=== PATIENT | male | born 1950 | race Caucasian/White ===

== ENCOUNTER 2020-04-22 18:26 | Inpatient (IN) | payer OTHER, MEDICARE ==
[~2020-04-22] VITALS: Ht 167.6 cm; Wt 92.5 kg
[~2020-04-22 18:26] MED LIST: OMEP20ER; OXYACE5T PO; RXOXYACE PO
[2020-04-22 18:49] LABS: EOSINOPHILS ABSOLUTE AUTO 0.68 K/mm3 (0.00-0.68); EOSINOPHILS PERCENT AUTO 2 % (0-6); Hematocrit 35.6 % (37.0-53.0); Hemoglobin 11.7 g/dL (13.5-17.5); IMMATURE GRAN ABSOLUTE AUTO 0.37 K/mm3 (0.00-0.10); IMMATURE GRAN PERCENT AUTO 1 % (0-1); LYMPHOCYTES ABSOLUTE AUTO 1.78 K/mm3 (0.84-5.20); LYMPHOCYTES PERCENT AUTO 5 % (21-46); MONOCYTES ABSOLUTE AUTO 2.05 K/mm3 (0.16-1.47); MONOCYTES PERCENT AUTO 6 % (4-13); Mean Corpuscular HGB 29.8 pg (26.0-34.0); Mean Corpuscular HGB Conc 32.9 g/dL (31.5-36.5); Mean Corpuscular Volume 91 fL (80-100); Mean Platelet Volume 10.7 fL (9.1-12.4); NEUTROPHILS ABSOLUTE AUTO 27.97 K/mm3 (1.96-9.15); NEUTROPHILS PERCENT AUTO 85 % (41-73); Platelet Count 299 K/mm3 (150-400); RDW Coefficient Variation 12.5 % (11.7-14.2); RDW Standard Deviation 41.4 fL (35.1-46.3); Red Blood Cell Count 3.92 M/mm3 (4.30-5.90); White Blood Cell Count 32.96 K/mm3 (4.00-11.30)
[2020-04-22 18:50] LABS: BASOPHILS ABSOLUTE AUTO 0.11 K/mm3 (0.00-0.23); BASOPHILS PERCENT AUTO 0 % (0-2)
[2020-04-22 19:10] LABS: Alanine Aminotransfer (ALT/SGP 17 U/L (12-78); Albumin, Blood 3.1 g/dL (3.4-5.0); Albumin/Globulin Ratio 0.9 (0.8-1.8); Alk Phos 108 U/L (50-136); Anion Gap 6 mmol/L (6-16); Aspartate Aminotrans (AST/SGOT 14 U/L (12-37); Bilirubin, Total 0.5 mg/dL (0.1-1.0); Blood Urea Nitrogen 12 mg/dL (8-24); Bun/Creatinine Ratio 13.2 (12.0-20.0); CO2, Blood 26 mmol/L (21-32); Calcium, Blood 8.7 mg/dL (8.5-10.1); Chloride, Blood 106 mmol/L (98-108); Creatinine, Blood 0.91 mg/dL (0.60-1.20); Globulin, Blood 3.5 g/dL (2.2-4.0); Glomerular Filtration Rate >60 (60-); Glucose, Blood 137 mg/dL (70-99); Potassium, Blood 3.6 mmol/L (3.5-5.5); Sodium, Blood 138 mmol/L (136-145); Total Protein, Blood 6.6 g/dL (6.4-8.2); Troponin I <0.015 ng/mL (0.000-0.040)
[2020-04-22] MEDS ORDERED: TAMS.4ER PO (21:09)
[2020-04-22] MEDS ORDERED: FINA5 PO (21:10)
[2020-04-22] MEDS ORDERED: STIOLTO RESPIMAT4 G1 INH (21:10)
[2020-04-22] MEDS ORDERED: ALBU90OI INH (21:10)
[2020-04-22] MEDS ORDERED: AMLO5 PO (21:11)
[2020-04-22] MEDS ORDERED: MIRALAX17 GM PO (21:23)
[2020-04-22] MEDS ORDERED: DOCU100 PO (21:23)
--- NOTE | 2020-04-23 05:17 | NUR ---
END OF SHIFT SUMMARY PT TO UNIT FROM ED. 2LNC, SPO2 >94%. REMAINS ON 2LNC. EXERTIONASLLY DYSPNEIC WITH WHEEZES BILATERALLY AND COARSENESS BILAT BUT MORE NOTABLY TO LEFT LOBE. PT AMBULATES W/OUT ASSIST BUT DOES GET SOMEWHAT DYSPNEIC WITH EXERTION. PT STATES BREATHING HAS IMPROVED SINCE ADMISSION. PT HAS BEEN AFEBRILE SINCE ADMISSION. RESTING QUIETLY IN ROOM. PREFERS DOOR CLOSED. PARTICULAR ABOUR MEDICATIONS AND REQUIRES MUCH EDUCATION. PT PLEASANT AND COOPERATIVE. WILL CONTINUE TO MONITOR UNTIL SHIFT CHANGE.
[2020-04-23 16:09] LABS: BASOPHILS ABSOLUTE AUTO 0.02 K/mm3 (0.00-0.23); BASOPHILS PERCENT AUTO 0 % (0-2); EOSINOPHILS PERCENT AUTO 0 % (0-6); Hematocrit 28.7 % (37.0-53.0); Hemoglobin 9.4 g/dL (13.5-17.5); IMMATURE GRAN ABSOLUTE AUTO 0.16 K/mm3 (0.00-0.10); IMMATURE GRAN PERCENT AUTO 1 % (0-1); LYMPHOCYTES ABSOLUTE AUTO 0.71 K/mm3 (0.84-5.20); LYMPHOCYTES PERCENT AUTO 4 % (21-46); MONOCYTES ABSOLUTE AUTO 0.61 K/mm3 (0.16-1.47); MONOCYTES PERCENT AUTO 3 % (4-13); Mean Corpuscular HGB 29.9 pg (26.0-34.0); Mean Corpuscular HGB Conc 32.8 g/dL (31.5-36.5); Mean Corpuscular Volume 91 fL (80-100); Mean Platelet Volume 10.5 fL (9.1-12.4); NEUTROPHILS ABSOLUTE AUTO 17.55 K/mm3 (1.96-9.15); NEUTROPHILS PERCENT AUTO 92 % (41-73); Platelet Count 264 K/mm3 (150-400); RDW Coefficient Variation 12.5 % (11.7-14.2); RDW Standard Deviation 41.4 fL (35.1-46.3); Red Blood Cell Count 3.14 M/mm3 (4.30-5.90); White Blood Cell Count 19.05 K/mm3 (4.00-11.30)
--- NOTE | 2020-04-23 17:31 | NUR ---
SHIFT SUMMARY PT A&Ox4; CALM AND COOPERATIVE WITH CARE. PT SITTING ON SIDE OF BED; SBA TO BATHROOM. PT REPORTS PAIN WITH COUGH; ENCOUARGED PT WITH TO SPLINT WITH PILLOW FOR COUGHING; ENCOURAGED DEEP BREATHING; I/S AND FLUTTER VALVE AT BEDSIDE. SPO2 >90% ON 2L O2 VIA NC, SOB WITH EXERTION. PT DENIES NAUSEA AND LIGHTHEADEDNESS. PT RECIEVING PO/IV ANTIBIOTICS AND IV STEROIDS. VSS. NO OTHER ACUTE CHANGES NOTED DURING SHIFT. WILL CONTINUE TO MONITOR UNTIL REPORT GIVEN TO ONCOMING RN.
[2020-04-24 04:19] LABS: BASOPHILS ABSOLUTE AUTO 0.03 K/mm3 (0.00-0.23); BASOPHILS PERCENT AUTO 0 % (0-2); EOSINOPHILS PERCENT AUTO 0 % (0-6); Hematocrit 26.9 % (37.0-53.0); Hemoglobin 8.6 g/dL (13.5-17.5); IMMATURE GRAN ABSOLUTE AUTO 0.24 K/mm3 (0.00-0.10); IMMATURE GRAN PERCENT AUTO 1 % (0-1); LYMPHOCYTES ABSOLUTE AUTO 0.75 K/mm3 (0.84-5.20); LYMPHOCYTES PERCENT AUTO 3 % (21-46); MONOCYTES PERCENT AUTO 4 % (4-13); Mean Corpuscular HGB 29.5 pg (26.0-34.0); Mean Corpuscular Volume 92 fL (80-100); Mean Platelet Volume 10.7 fL (9.1-12.4); NEUTROPHILS ABSOLUTE AUTO 22.53 K/mm3 (1.96-9.15); NEUTROPHILS PERCENT AUTO 92 % (41-73); Platelet Count 234 K/mm3 (150-400); RDW Coefficient Variation 12.5 % (11.7-14.2); Red Blood Cell Count 2.92 M/mm3 (4.30-5.90); White Blood Cell Count 24.55 K/mm3 (4.00-11.30)
[2020-04-24 04:42] LABS: Anion Gap 4 mmol/L (6-16); Blood Urea Nitrogen 22 mg/dL (8-24); Bun/Creatinine Ratio 26.4 (12.0-20.0); CO2, Blood 28 mmol/L (21-32); Calcium, Blood 8.6 mg/dL (8.5-10.1); Chloride, Blood 110 mmol/L (98-108); Creatinine, Blood 0.83 mg/dL (0.60-1.20); Glomerular Filtration Rate >60 (60-); Glucose, Blood 158 mg/dL (70-99); Potassium, Blood 4.4 mmol/L (3.5-5.5); Sodium, Blood 142 mmol/L (136-145)
--- NOTE | 2020-04-24 05:47 | NUR ---
END OF SHIFT SUMMARY NO ACUTE CHANGES THIS SHIFT. VSS. REMAINS ON 2LNC. LUNGS WITH CRACKLES IN BASES. REMAINS SR TO ST. STATES BREATHING FEELS "MUCH IMPROVED" SINCE ADMISSION. NEW POSITIVE BLOOD CULTURE CALLED TO THIS RN. NO ORDERS, PT ON ABX CURRENTLY. PT VERY ANXIOS TO GET HOME BUT IS COOPERATIVE WITH CARE/STAFF. VERY PLEASANT. WILL CONTINUE TO MONITOR UNTIL SHIFT CHANGE.
[2020-04-24 10:55] LABS: Hemoglobin 9.3 g/dL (13.5-17.5)
[2020-04-24] MEDS ORDERED: ACET325 PO (12:40)
[2020-04-24] MEDS ORDERED: PRED20 PO (12:40)
[2020-04-24] MEDS ORDERED: AMOCLA875 PO (12:44)
[2020-04-24] MEDS ORDERED: VISBIOME PROBIOTIC PO (12:46)
--- NOTE | 2020-04-24 17:44 | NUR ---
DISCHARGE SUMMARY PT A&Ox4; CALM AND COOPERATIVE WITH CARE. PT SITTING ON SIDE OF BED; SBA IN ROOM. PT DENIES PAIN, CHEST PAIN/PRESSURE, NAUSEA AND DIZZINESS DURING SHIFT. PT REPORTS SOB WITH ACTIVITY; PT STARTED ON 2L O2 VIA NC THIS AM TITRATED TO RA AT REST; HOME O2 EVALUATION PT NEEDING 3L O2 VIA NC WITH ACTIVITY. PT REICEINVG IV ANTIBIOTICS AND TRANSITIONED FROM IV TO PO STEROIDS. VSS. NO OTHER ACUTE CHANGES NOTED. PT EDUCATED ON DISCHARGE INSTRCUTION, MEDICATIONS AND FOLLOW UP APPOINTMENTS. PT LEFT ROOM VIA WHEELCHAIR AT 1659. PT STABLE UPIN DISCHARGE.
== END 2020-04-24 17:10 | disposition home or self-care (01) | DRG 871 ==
LOC: ER 18:26 → PCU 21:05
PROVIDERS: Internal Medicine; Student in an Organized Health Care Education/Training Program; ADMIT Internal Medicine
DX: A41.9 Sepsis, unspecified organism (principal); J18.9 Pneumonia, unspecified organism; J96.01 Acute respiratory failure with hypoxia; J96.02 Acute respiratory failure with hypercapnia; S27.1XXA Traumatic hemothorax, initial encounter; S22.49XA Multiple fractures of ribs, unspecified side, initial encounter for closed fracture; J44.1 Chronic obstructive pulmonary disease with (acute) exacerbation; J44.0 Chronic obstructive pulmonary disease with (acute) lower respiratory infection; R65.20 Severe sepsis without septic shock; I87.2 Venous insufficiency (chronic) (peripheral); I10 Essential (primary) hypertension; F17.210 Nicotine dependence, cigarettes, uncomplicated
CPT/HCPCS: 36415; 71045; 80048; 80053; 83605; 84145; 84484; 85014; 85018; 85025; 87040; 93005; 93010; 94640; 94760; 94761; 96361; 96365; 97110; 97161; 99285-25; J0696; J1650; J2920; J2930; J7030; J7512

== ENCOUNTER 2021-08-03 19:35 | Emergency (ER) | payer OTHER ==
[~2021-08-03] VITALS: Ht 167.6 cm; Wt 75.3 kg
[~2021-08-03 19:35] MED LIST changes: +ACET325 PO; +ALBU90OI INH; +AMLO5 PO; +AMOCLA875 PO; +DOCU100 PO; +FINA5 PO; +MIRALAX17 GM PO; +PRED20 PO; +STIOLTO RESPIMAT4 G1 INH; +TAMS.4ER PO; +VISBIOME PROBIOTIC PO
[2021-08-03] MEDS ORDERED: SULTRIDS PO (20:01)
[2021-08-03] MEDS ORDERED: STRIVERDI RESPIM4 G1 INH (20:02)
[2021-08-03 20:35] LABS: BASOPHILS ABSOLUTE AUTO 0.03 K/mm3 (0.00-0.23); BASOPHILS PERCENT AUTO 0 % (0-2); EOSINOPHILS ABSOLUTE AUTO 0.09 K/mm3 (0.00-0.68); EOSINOPHILS PERCENT AUTO 1 % (0-6); Hematocrit 41.4 % (37.0-53.0); Hemoglobin 13.7 g/dL (13.5-17.5); IMMATURE GRAN ABSOLUTE AUTO 0.07 K/mm3 (0.00-0.10); IMMATURE GRAN PERCENT AUTO 1 % (0-1); LYMPHOCYTES ABSOLUTE AUTO 0.88 K/mm3 (0.84-5.20); LYMPHOCYTES PERCENT AUTO 7 % (21-46); MONOCYTES ABSOLUTE AUTO 1.03 K/mm3 (0.16-1.47); MONOCYTES PERCENT AUTO 8 % (4-13); Mean Corpuscular HGB Conc 33.1 g/dL (31.5-36.5); Mean Corpuscular Volume 88 fL (80-100); Mean Platelet Volume 11.8 fL (9.1-12.4); NEUTROPHILS ABSOLUTE AUTO 10.83 K/mm3 (1.96-9.15); NEUTROPHILS PERCENT AUTO 84 % (41-73); Platelet Count 193 K/mm3 (150-400); RDW Coefficient Variation 12.7 % (11.7-14.2); RDW Standard Deviation 40.7 fL (35.1-46.3); Red Blood Cell Count 4.72 M/mm3 (4.30-5.90); White Blood Cell Count 12.93 K/mm3 (4.00-11.30)
[2021-08-03 20:42] LABS: Source, Urine Voided
[2021-08-03 20:44] LABS: Bilirubin, Urine Neg (Neg); Blood, Urine 5+ (Neg); Glucose Qualitative, Urine Neg (Neg); Ketones, Urine 2+ (Neg); Leukocyte Esterase, Urine 3+ (Neg); Nitrite, Urine Neg (Neg); Protein, Urine 1+ (Neg); Urobilinogen, Urine NORM (Normal)
[2021-08-03 20:47] LABS: Albumin, Blood 3.2 g/dL (3.4-5.0); Albumin/Globulin Ratio 0.8 (0.8-1.8); Bilirubin, Total 0.6 mg/dL (0.1-1.0); Bun/Creatinine Ratio 10.7 (12.0-20.0); Calcium, Blood 9.2 mg/dL (8.5-10.1); Creatinine, Blood 1.69 mg/dL (0.60-1.20); Potassium, Blood 4.3 mmol/L (3.5-5.5); Total Protein, Blood 7.2 g/dL (6.4-8.2)
[2021-08-03 20:57] LABS: Appearance, Urine Hazy (Clear); Color, Urine Red (P-Yellow)
[2021-08-03 20:58] LABS: Bacteria Few /hpf; Red Blood Cells, Urine TNTC /hpf (0-2); Squamous Epithelial Cells Rare /hpf (Few); White Blood Cells, Urine 50-100 /hpf (0-5)
[2021-08-03] MEDS ORDERED: CEPH500 PO (21:28)
== END 2021-08-03 22:01 | disposition home or self-care (01) ==
LOC: ER 19:35
PROVIDERS: Emergency Medicine
DX: N41.9 Inflammatory disease of prostate, unspecified (principal); R33.9 Retention of urine, unspecified; J44.9 Chronic obstructive pulmonary disease, unspecified; I10 Essential (primary) hypertension; Z79.899 Other long term (current) drug therapy
CPT/HCPCS: 51702; 51798; 80053; 81001; 85025; 87077; 87086; 96374; 99284-25; J2060